=== PATIENT | male | born 1960 | race Caucasian/White ===

== ENCOUNTER 2018-08-23 20:36 | Emergency (ER) | payer MEDICAID ==
[~2018-08-23] VITALS: Ht 175.3 cm; Wt 80.7 kg
--- NOTE | 2018-08-23 21:00 | NUR ---
BIBRA FOUND +ETOH. DENIES SI/HI, SOB, N/V/D. PT APPEARS DISHEVELED. RESPIRATIONS EVEN AND UNLABORED. SKIN INTACT. NO ACUTE DISTRESS NOTED AT THIS TIME. WILL CONTINUE TO MONITOR
[2018-08-23] MEDS: BACITRACIN ZINC OINT PACKET 1 EA PACKET TP ONE (21:22)
--- NOTE | 2018-08-23 22:31 | NUR ---
PER PT REQUEST, RECEIEVED FOOD AND JUICE
--- NOTE | 2018-08-24 00:51 | NUR ---
PT RESTING COMFORTABLY IN BED. VITAL SIGNS STABLE. NO ACUTE DISTRESS NOTED AT THIS TIME. STILL ON MONITOR, WILL CONTINUE TO MONITOR
--- NOTE | 2018-08-24 02:27 | NUR ---
PT RESTING COMFORTABLY IN BED. VITAL SIGNS STABLE. NO ACUTE DISTRESS NOTED AT THIS TIME. STILL ON MONITOR, WILL CONTINUE TO MONITOR
--- NOTE | 2018-08-24 03:48 | NUR ---
PT RESTING COMFORTABLY IN BED. VITAL SIGNS STABLE. NO ACUTE DISTRESS NOTED AT THIS TIME
--- NOTE | 2018-08-24 04:30 | NUR ---
PT DOZING INTERMITTENTLY. AAOX4. DENIES SI/HI. RESPIRATIONS EVEN AND UNLABORED. SKIN WARM AND INTACT. NO ACUTE DISTRESS NOTED AT THIS TIME.
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
[2018-08-24 05:59] VITALS: BP 129/74
== END 2018-08-24 05:59 | disposition home or self-care (01) ==
LOC: ER 20:39
DX: F10.10 Alcohol abuse, uncomplicated (principal); F12.10 Cannabis abuse, uncomplicated; F17.200 Nicotine dependence, unspecified, uncomplicated; Y90.9 Presence of alcohol in blood, level not specified; Z59.0 Homelessness

== ENCOUNTER 2019-04-14 02:29 | Emergency (ER) | payer MEDICAID, OTHER ==
[~2019-04-14] VITALS: Ht 165.1 cm; Wt 88.0 kg
--- NOTE | 2019-04-14 02:38 | NUR ---
ADRI 89 C/O "HAVING SOB FOR SEVERAL DAYS, WORSE TODAY. RECEIVED X1 BREATHING TREATMENT ON ROUTE" AOX4. VSS AT THIS TIME. -ACUTE DISTRESS NOTED
[2019-04-14] MEDS ORDERED: ALBUTEROL FS 2.5 MG/0.5 ML VIAL.NEB ONE (02:59)
[2019-04-14] MEDS ORDERED: ALBUTEROL FS 2.5 MG/0.5 ML VIAL.NEB NEB ONE (03:00)
[2019-04-14 04:51] VITALS: BP 123/78
== END 2019-04-14 04:51 | disposition home or self-care (01) ==
LOC: ER 02:35
DX: J45.909 Unspecified asthma, uncomplicated (principal); F10.10 Alcohol abuse, uncomplicated; F17.200 Nicotine dependence, unspecified, uncomplicated; Y90.9 Presence of alcohol in blood, level not specified
CPT/HCPCS: 71045-TC